=== PATIENT | female | born 1950 | race Caucasian/White ===

== ENCOUNTER 2019-01-18 08:39 | Outpatient (CLI) | payer OTHER, MEDICARE | END 2019-01-18 20:53 | disposition home or self-care (01) | LOC: SNM 08:39 | PROVIDERS: ATTEND Colon & Rectal Surgery | DX: R10.9 Unspecified abdominal pain (principal) | CPT/HCPCS: 78227; A9537 ==

== ENCOUNTER 2019-03-02 14:54 | Emergency (ER) | payer OTHER, MEDICARE ==
[~2019-03-02] VITALS: Ht 154.9 cm; Wt 59.0 kg
[2019-03-02 14:55] VITALS: BP_SYST 139
--- NOTE | 2019-03-02 14:55 | NUR ---
Patient triaged and placed in waiting room. VSS and patient appears in no acute distress at this time. Accompanied by DAUGHTER, awaiting available bed, and MD notified of need for MSE.
--- NOTE | 2019-03-02 15:13 | NUR ---
BROUGHT BACK TO BED #5 AND REPORT GIVEN TO KENZIE
[2019-03-02] MEDS ORDERED: KETOROLAC TROMETHAMINE 60 MG/2 ML VIAL IM ONE (15:15)
--- NOTE | 2019-03-02 15:17 | NUR ---
Patient is awake, alert, and oriented x4. She is complaining of abdominal pain since last night. Patient presents with 10/10 pressure abdominal pain; denies nausea, vomiting, and diarrhea.
--- NOTE | 2019-03-02 15:21 | NUR ---
ER Dr. Manriquez at bedside examining patient.
--- NOTE | 2019-03-02 17:00 | NUR ---
Patient given written and verbal discharge instructions and verbalizes understanding. ER MD discussed with patient the results and treatment provided. Patient in stable condition. ID arm band removed. IV catheter removed intact and dressing applied, no active bleeding. Rx of zofran ODT, norco, ibuprofen given. Patient educated on pain management and to follow up with PMD. Pain Scale 0/10. Opportunity for questions provided and answered. Medication side effect fact sheet provided.
[2019-03-02 17:01] VITALS: BP_SYST 130
== END 2019-03-02 17:01 | disposition home or self-care (01) ==
LOC: SED 14:54
DX: K80.50 Calculus of bile duct without cholangitis or cholecystitis without obstruction (principal); R03.0 Elevated blood-pressure reading, without diagnosis of hypertension
CPT/HCPCS: 96372; 99283; J1885

== ENCOUNTER 2019-03-12 05:45 | Day surgery (SDC) | payer OTHER, MEDICARE ==
[~2019-03-12] VITALS: Ht 154.9 cm; Wt 58.1 kg
[2019-03-12] MEDS ORDERED: CEFAZOLIN SOD 1 GM in D5W 50 ML IV ONE (07:30)
[2019-03-12] MEDS ORDERED: NS IRRIG SOLN 1000 ML IR ONE (07:40)
[2019-03-12] MEDS ORDERED: GLYCOPYRROLATE 0.2 MG/ML VIAL IJ ONE (07:40)
[2019-03-12] MEDS ORDERED: NS 1000 ML IV.SOLN IV ONE (07:40)
[2019-03-12] MEDS ORDERED: ONDANSETRON HCL 4 MG/2 ML VIAL IVP ONE (07:40)
[2019-03-12] MEDS ORDERED: fentaNYL CITRATE 250 MCG/5 ML AMP IV ONE (07:40)
[2019-03-12] MEDS ORDERED: NEOSTIGMINE METHYLSULFATE 1 MG/ML, 10 ML VIAL IVP ONE (07:40)
[2019-03-12] MEDS ORDERED: IOPAMIDOL 50 ML VIAL IV ONE (07:40)
[2019-03-12] MEDS ORDERED: LR 1,000 ML IV.SOLN IV ONE (07:40)
[2019-03-12] MEDS ORDERED: PROPOFOL 200MG/ 20ML VIAL (DIPRIVAN) IV ONE (07:40)
[2019-03-12] MEDS ORDERED: ROCURONIUM BROMIDE 10 MG/ML (ZEMURON) IV ONE (07:40)
[2019-03-12] MEDS ORDERED: ISOFLURANE 15 MIN GAS INH ONE (07:40)
[2019-03-12] MEDS ORDERED: MIDAZOLAM HCL 5 MG/5 ML VIAL IVP ONE (07:40)
[2019-03-12] MEDS ORDERED: BUPIVACAINE /EPINEPHRINE/PF 0.25% 30 ML VIAL INJ ONE (07:40)
[2019-03-12] MEDS ORDERED: IOHEXOL 50 ML IV ONE (07:55)
[2019-03-12] MEDS ORDERED: LR 1,000 ML IV SCH (08:35)
[2019-03-12] MEDS ORDERED: METOCLOPRAMIDE HCL 10 MG/2 ML VIAL IVP PRN (08:45)
[2019-03-12] MEDS ORDERED: MORPHINE 4 MG/ML INJ. SYRINGE IVP PRN ×3 (08:45)
[2019-03-12] MEDS ORDERED: D5/0.45 NS 1,000 ML IV SCH (08:54)
[2019-03-12] MEDS ORDERED: HYDROcodone/ACETAMIN 5-325 MG TAB (NORCO/ VICODIN) PO PRN ×2 (09:00)
[2019-03-12] MEDS ORDERED: HYDROmorphone 1 MG INJ. 1 MG/ML AMPUL IVP PRN (09:00)
[2019-03-12] MEDS: MORPHINE 4 MG/ML INJ. SYRINGE ONE ×2 (09:10→09:15)
[2019-03-12 10:12] VITALS: BP_SYST 143
[2019-03-12] MEDS ORDERED: HYDROcodone/ACETAMIN 5-325 MG TAB (NORCO/ VICODIN) ONE (11:13)
== END 2019-03-12 12:35 | disposition home or self-care (01) ==
LOC: SDS 05:45 → SMU 05:45 → SDS 12:35
PROVIDERS: ATTEND Colon & Rectal Surgery
DX: K81.1 Chronic cholecystitis (principal); K82.8 Other specified diseases of gallbladder; I10 Essential (primary) hypertension; E11.9 Type 2 diabetes mellitus without complications; K21.9 Gastro-esophageal reflux disease without esophagitis; E78.00 Pure hypercholesterolemia, unspecified; Z79.899 Other long term (current) drug therapy; Z82.0 Family history of epilepsy and other diseases of the nervous system
CPT/HCPCS: 47563; 74300; 82962; 88304; C1727; J0690; J2250; J2270; J2405; J2704; J2710; J2765; J3010; J3490 ×2; J7030; J7060; J7120; Q9967 ×2; 76000